=== PATIENT | female | born 1975 | race Caucasian/White ===

== ENCOUNTER 2019-11-29 00:52 | Day surgery (SDC) | payer OTHER, SELFPAY ==
[2019-11-19 11:58] VITALS: BMI 25.0
[2019-11-29 06:44] VITALS: BP 121/64; PULSE 85; RESP 16; TEMP 37.2; O2SAT 100
[2019-11-29] MEDS: LACTATED RINGERS 1,000 ML 30 ML IV CONT (06:50)
--- NOTE | 2019-11-29 07:11 | WPDANESEPPF ---
Anes - Initial Pre Proc Eval Procedure: Operation Date: 11/29/19 07:30 Proposed Procedures p Hysteroscopy, Dilation and Curettage, Possible Myosure - Lauar Bolton MD Date/Time: 11/29/19 07:11 Surgeon: Laura Bolton MD Pre Op Diagnosis: Menorrhagia/ Firbroids Patient Data Age: 44 Gender: F Height: 5 ft 6 in Weight: 70.31 kg Allergies Allergy/AdvReac Type Severity Reaction Status Date / Time No Known Allergies Allergy Verified 11/19/19 11:59 Home Medications Medication Instructions Recorded Confirmed Type albuterol sulfate 1 inh INHALATION DIRECTED PRN 11/19/19 11/29/19 History aloe vera 2 cap PO DAILY 11/19/19 11/29/19 History bupropion HCl 150 mg PO QPM 11/19/19 11/29/19 History magnesium 1 tablet PO DAILY 11/19/19 11/29/19 History multivitamin 1 tablet PO DAILY 11/19/19 11/29/19 History omeprazole 20 mg PO DAILY 11/19/19 11/29/19 History triamcinolone acetonide [Nasacort] 1 spray INTRANASAL DAILY 11/19/19 11/29/19 History Patient hx anesthesia problems: post op nausea/vomiting Family hx anesthesia problems: none PMFSH Past Medical History Medical History (Updated 11/29/19 @ 07:11 by Cj High MD) Anxiety Asthma Depression GERD (gastroesophageal reflux disease) Anes - Eval Final PreProcedure Day of Procedure 11/29/19 07:11 Patient weight: normal Heart: regular rate and rhythm Lungs: clear to auscultation Airway: Mallampati scale class II Neurological: alert and oriented Last oral intake: >/= 8 hours ASA classification: II Emergent: no Anesthetic plan: proceed Anesthesia type and monitoring: general GIVS and standard monitoring Informed Consent: The patient's anesthetic plan and its attendant risks and benefits were discussed with the patient/family/POA. Questions were solicited and answers provided to the satisfaction of the patient/family/POA.
[2019-11-29] MEDS: SCOPOLAMINE 1.5 MG PATCH TRANSDERM (07:19)
[2019-11-29] MEDS: ONDANSETRON INJ 4 MG/2 ML VIAL IV PUSH (07:20)
--- NOTE | 2019-11-29 07:20 | PM.HPGS ---
History of Present Illness History of Present Illness Consent: Risks, benefits, and alternatives have been discussed and questions answered. Patient agrees to proceed with procedure. Chief complaint: Menorrhagia/ Firbroids Narrative: Verónica Shaw is a 44 year old female with worsening cycles. Currently, cycles heavy and long (up to 12 days). On heaviest day, she uses a pad per hour for up to 2 days. Cramping is also getting worse over time with now most days some cramping. Cramps are worst midcycle and with cycle. Pelvic u/s done by PCP shows several 2 cm fibroids. Recommend to proceed with work up in OR with hysteroscopy, D&C, and possible myosure. Risks of infection, bleeding, perforation, and fluid imbalance were reviewed. Patient agrees to proceed. [facility] Past Medical History Medical History (Updated 11/29/19 @ 07:26 by Laura Bolton MD) Anxiety Asthma Depression GERD (gastroesophageal reflux disease) Interstitial cystitis (normal spontaneous vaginal delivery) x 3 Surgical History Surgical History (Updated 11/29/19 @ 07:25 by Laura Bolton MD) H/O laparoscopy for ectopic Meds Home Medications and Allergies Home Medications Medication Instructions Recorded Confirmed Type albuterol sulfate 1 inh INHALATION DIRECTED PRN 11/19/19 11/29/19 History aloe vera 2 cap PO DAILY 11/19/19 11/29/19 History bupropion HCl 150 mg PO QPM 11/19/19 11/29/19 History magnesium 1 tablet PO DAILY 11/19/19 11/29/19 History multivitamin 1 tablet PO DAILY 11/19/19 11/29/19 History omeprazole 20 mg PO DAILY 11/19/19 11/29/19 History triamcinolone acetonide [Nasacort] 1 spray INTRANASAL DAILY 11/19/19 11/29/19 History Allergies Allergy/AdvReac Type Severity Reaction Status Date / Time No Known Allergies Allergy Verified 11/19/19 11:59 Vital Signs Vital Signs - 24 hr 11/29/19 06:44 Temperature 98.9 F Pulse Rate 85 Respiratory Rate 16 Blood Pressure 121/64 Pulse Oximetry 100 Exam Const: General: healthy appearing and alert Orientation/consciousness: patient oriented x3 Resp: Effort & Inspection: normal respiratory effort Auscultation: clear to auscultation bilaterally Cardio: Rate: regular rate Rhythm: regular rhythm GI: GI Palp: Yes Soft to palpation, No Tenderness to palpation present (GI) and No Palpable mass present Neuro: General: patient oriented x3 Assessment and Plan Assessment and plan (1) Menorrhagia: Code(s): N92.0 - Excessive and frequent menstruation with regular cycle Status: Acute Assessment and Plan: Plan to proceed with hystseroscopy, D&C, and possible myosure
--- NOTE | 2019-11-29 08:03 | SUR.OPER ---
EBL:5CC, HYSTEROSCOPY FLUID:750CC COLLECTED, 1000CC OUT OF BAG
--- NOTE | 2019-11-29 08:03 | PM.OP ---
Procedure Note - Brief Procedure Note - Brief Date of procedure: 11/29/19 Pre-op diagnosis: Menorrhagia/ Firbroids Post-op diagnosis: same Procedure performed: hysteroscopy, D&C, myosure resection of fibroid Anesthesia: MAC and local Surgeon: Laura Bolton MD Estimated blood loss (mL): 5 Drains: No Packing: No Pathology: yes (myosure shavings and curettings) Complications: No immediate complications Condition: stable Disposition: PACU Findings: uterus 9 cm; anterior fibroid near endometrial/cervical junction; remainder of endometrium appears grossly normal
[2019-11-29 08:12] VITALS: BP 123/58; PULSE 90; RESP 16; O2SAT 99
[2019-11-29 08:40] VITALS: BP 111/66; PULSE 70; RESP 16
[2019-11-29] MEDS: KETOROLAC 30 MG/ML VIAL (*BKC) IV PUSH (09:03)
--- NOTE | 2019-11-29 09:03 | SUR.PHASEII ---
0900; PT C/O CRAMPING -04/28 NOW. ASSESSMENT UNCHANGED. PT WANTING IBUPROFEN. NOT A NARCOTIC. CALLED DR MARIO. ORDER FOR IV TORADOL 30MG
[2019-11-29 09:10] VITALS: BP 111/63; PULSE 70; RESP 16
--- NOTE | 2019-11-29 10:20 | OP_ITS ---
DATE OF PROCEDURE: 11/29/2019 PREOPERATIVE DIAGNOSIS: Menorrhagia with fibroids. POSTOPERATIVE DIAGNOSIS: Menorrhagia with fibroids. PROCEDURE: D and C hysteroscopy with MyoSure resection of fibroid. ANESTHESIA: MAC and local. FINDINGS: The uterus sounds to 9 cm. There is an anterior fibroid near the endometrial cervical junction. The remainder of the endometrium appears grossly normal. ESTIMATED BLOOD LOSS: 5 cc. PATHOLOGY: Endometrial shavings and curettings. DESCRIPTION OF PROCEDURE: The patient was taken to the operating room, placed under anesthesia in the dorsal lithotomy position. She was prepped and draped in the usual sterile fashion. Brogan speculum was placed in the vagina. The cervix was grasped on the anterior lip with a tenaculum and injected with 1% lidocaine. The uterus was sounded to 9 cm. The cervix was serially dilated with Hegar. The diagnostic hysteroscope was placed with the above-stated findings. The MyoSure device was opened and placed. Under direct visualization, the anterior fibroid was completely removed. The hysteroscope was then removed. The medium sharp curette was used to sharply curette the remainder of the endometrium until a good uterine cry was noted in all areas. All instruments were removed. The patient was taken to Recovery in stable condition. D I MT: Marni
== END 2019-11-29 09:35 | disposition home or self-care (01) ==
PROVIDERS: PCP Family Medicine; Visit Provider Obstetrics & Gynecology Gynecology
PROC: 0U5B8ZZ Destruction of Endometrium, Via Natural or Artificial Opening Endoscopic (ICD-10-PCS; CPT 58563; principal; 2019-11-29 07:30)
DX: N92.0 Excessive and frequent menstruation with regular cycle (principal); D25.0 Submucous leiomyoma of uterus; J45.909 Unspecified asthma, uncomplicated; K21.9 Gastro-esophageal reflux disease without esophagitis; F41.8 Other specified anxiety disorders
CPT/HCPCS: 58561; 88305; A9270; J1885; J2250; J2405; J2704; J3010; J7030; J7120

== ENCOUNTER 2023-04-19 10:07 | Emergency (ER) | payer OTHER, SELFPAY ==
[2023-04-19 10:18] VITALS: BP 123/78; PULSE 98; RESP 16; TEMP 36.7; O2SAT 99
[2023-04-19 10:20] VITALS: BP 123/78; PULSE 98; RESP 16; TEMP 36.7; O2SAT 99
--- NOTE | 2023-04-19 11:05 | ED.EAR ---
HPI - Ear Problem General Chief complaint: Ear Stated complaint: EARACHE Time Seen by Provider: 04/19/23 10:58 Source: patient, RN notes reviewed and old records reviewed Mode of arrival: ambulatory Limitations: no limitations History of Present Illness HPI Narrative: 48 year old female presents to [facility] with complaints of pain to both ears internally and externally on right ear with no drainage noted. Patient states that she has not had any dizziness or nausea, fevers, sinus congestion or drainage, reports history of previous swimmer ear. Patient reports no recent swimming. Moderate amount of wax noted to right ear canal with ear canal irritation noted. MD Complaint: ear pain Location: bilateral Severity: mild Discharge from ear: Reports no Associated symptoms ear: external ear tenderness and other (internal pressure) Treatment prior to arrival: none Related Data Home Medications Medication Instructions Recorded Confirmed albuterol sulfate 90 mcg/actuation 1 inh inhalation DIRECTED PRN 11/19/19 11/29/19 aerosol inhaler Shortness Of Breath Or Wheezing bupropion HCl 150 mg 24 hr tablet, 150 mg PO QPM 11/19/19 11/29/19 extended release multivitamin 1 tablet PO DAILY 11/19/19 11/29/19 omeprazole 20 mg capsule,delayed 20 mg PO DAILY 11/19/19 11/29/19 release Allergies Allergy/AdvReac Type Severity Reaction Status Date / Time No Known Allergies Allergy Verified 04/19/23 10:19 Review of Systems Review of Systems: CONSTITUTIONAL: Denies malaise, chills, sweats, or fever. EYES: Denies visual changes, redness, or discharge. ENT: Reports no rhinorrhea, congestion, sinus pain,positive for bilateral otalgia denies sore throat. CARDIOVASCULAR: Denies chest pain, palpitations, or edema. RESPIRATORY: Reports no cough.? Denies dyspnea. GASTROINTESTINAL: Denies abdominal pain, nausea, vomiting, diarrhea SKIN: Denies rash or itching. MUSCULOSKELETAL: Denies myalgia. NEUROLOGIC: Denies headache. All systems reviewed & are unremarkable except as noted in HPI and below PMFSH Past Medical History Medical History Anxiety Asthma Depression GERD (gastroesophageal reflux disease) Interstitial cystitis (normal spontaneous vaginal delivery) x 3 Surgical History Surgical History H/O laparoscopy for ectopic Social History Social History (Updated 04/20/23 @ 08:49 by Nitza Warren NP) Smoking status: Never smoker Alcohol intake: current Alcohol use details: rare social Substance use type: does not use Living arrangements: with family Gender identity (if verbalized by the patient): Female Comments At time of signature, agree with nursing past medical, surgical, social and family history. There is no relevant family history pertinent to the presenting complaint Exam Narrative: GENERAL: Well-appearing, well-nourished, and in no acute distress. HEAD: Normocephalic EYES: PERRLA, conjunctivae clear ENT: Nares clear, turbinates edematous and erythematous, clear discharge. Mucous membranes moist. TM pearly diaz with dull light reflex bilaterally; right tragal tenderness red irritation to right ear canal and some soft wax noted. Oropharynx erythematous without lesions. Tonsils not enlarged and without exudate, no drooling, no hoarseness, no trismus, uvula midline. NECK: Supple. No lymphadenopathy CHEST: Clear to auscultation, breath sounds equal. No wheezing, rhonchi, rales, or stridor. No respiratory distress, speaks in full sentences.SAO2 99% on room air HEART: Regular rate and rhythm. No murmur heard. SKIN: Warm, dry, no rash. NEURO: Alert and oriented x3. PSYCH: Normal mood and affect Course Course Emergency Course: Patient is aware of diagnosis, understands and agrees to treatment plan.? Anticipatory guidance given.? Patient
== END 2023-04-19 11:21 | disposition home or self-care (01) ==
PROVIDERS: Emergency Provider Registered Nurse
DX: H60.311 Diffuse otitis externa, right ear (principal); J45.909 Unspecified asthma, uncomplicated; K21.9 Gastro-esophageal reflux disease without esophagitis; F41.9 Anxiety disorder, unspecified; F32.A Depression, unspecified
CPT/HCPCS: 99203; G0463

== ENCOUNTER 2024-07-19 22:43 | Emergency (ER) | payer OTHER, SELFPAY ==
[2024-07-19 22:55] VITALS: BP 126/66; PULSE 77; RESP 14; TEMP 36.6; O2SAT 100
--- NOTE | 2024-07-20 02:00 | PC.NURSE ---
Pt approached triage desk stating that she was no longer feeling bad and was deciding to go home.
== END 2024-07-20 02:00 | disposition left against medical advice (07) ==
DX: R42 Dizziness and giddiness (principal)
CPT/HCPCS: 99199